=== PATIENT | male | born 1980 | race Asian ===

== ENCOUNTER 2022-03-06 07:16 | Emergency (ER) | payer OTHER ==
[~2022-03-06] VITALS: Ht 170.2 cm; Wt 93.0 kg
[2022-03-06] MEDS ORDERED: AMLO1CAP PO (07:33)
[2022-03-06] MEDS ORDERED: DAPA5TAB PO (07:33)
[2022-03-06] MEDS ORDERED: SITA1TAB2 PO (07:33)
--- NOTE | 2022-03-06 07:38 | NUR ---
MD at bedside for evaluation
[2022-03-06] MEDS ORDERED: IV NORMAL SALINE 1000 ML BAG IV ONE (07:45)
[2022-03-06] MEDS ORDERED: MORPHINE SULFATE 2 MG/1 ML DISP.SYRIN IV ONE (07:45)
[2022-03-06] MEDS ORDERED: ONDANSETRON 4 MG/2 ML VIAL IV ONE ×2 (07:45→09:00)
--- NOTE | 2022-03-06 07:45 | NUR ---
Patient walked into the ER for complaints of chest pain, flank pain, and nausea and vomiting. Patient states it started around 4AM this morning. Pain level is 7/10. Patient states that he had kidney stones in October and his flank pain is similar to what he felt previously. No shortness of breath noted.
[2022-03-06] MEDS ORDERED: ONDANSETRON 4 MG/2 ML VIAL ONE (07:50)
[2022-03-06 07:51] LABS: HEMATOCRIT 44.5 % (36.7-47.1); MEAN CORPUSCULAR HEMOGLOBIN 31.2 uug (23.8-33.4); MEAN CORPUSCULAR VOLUME 92.2 fL (73.0-96.2); PLATELET COUNT (AUTO) 223 K/uL (152-348)
[2022-03-06] MEDS ORDERED: MORPHINE SULFATE 4 MG/1 ML DISP.SYRIN ONE (07:51)
[2022-03-06 08:00] LABS: CARBON DIOXIDE 32 mmol/L (21-32); CHLORIDE 101 mmol/L (98-107); CREATININE 1.2 mg/dL (0.6-1.3); GLUCOSE 162 mg/dL (74-106); POTASSIUM 4.3 mmol/L (3.5-5.1); UREA NITROGEN, BLOOD 15 mg/dL (7-18)
[2022-03-06 08:12] LABS: ALANINE AMINOTRANSFERASE 45 U/L (16-63); ALKALINE PHOSPHATASE 56 U/L (50-136); ASPARTATE AMINOTRANSFERASE 11 U/L (15-37); BILIRUBIN,DIRECT 0.1 mg/dL (0.0-0.2); BILIRUBIN,TOTAL 0.4 mg/dL (0.2-1.0); TOTAL PROTEIN, SERUM 8.2 g/dL (6.4-8.2)
--- NOTE | 2022-03-06 08:12 | NUR ---
Patient taken to CT.
--- NOTE | 2022-03-06 08:25 | NUR ---
Patient back from CT.
--- NOTE | 2022-03-06 08:25 | NUR ---
Patient complains of new onset pressure in the chest and nausea. MD notified. Order received for repeat EKG.
[2022-03-06 08:34] LABS: *BILIRUBIN,URIN NEGATIVE (NEGATIVE); *BLOOD, URINE NEGATIVE (NEGATIVE); *CLARITY,URINE CLEAR (CLEAR); *COLOR,URINE YELLOW (YELLOW); *KETONES,URINE NEGATIVE (NEGATIVE); LEUKOCYTE ESTERASE ,URINE NEGATIVE (NEGATIVE); NITRITE, URINE NEGATIVE (NEGATIVE); PH,URINE 8.5 (5.0-8.0); UGLUCOSE 3+ (NEGATIVE)
--- NOTE | 2022-03-06 08:40 | NUR ---
Patient states that pressure in chest and nausea subsided.
[2022-03-06 09:22] LABS: BACTERIA,URINE NONE SEEN /HPF (NONE SEEN); MUCUS,URINE FEW /LPF (0-FEW); RBC,URINE NONE SEEN /HPF (0-3); SQUAMOUS EPITHELIAL CELL,UR NONE SEEN /HPF (NONE SEEN); WBC,URINE 0-3 /HPF (0-3)
[2022-03-06] MEDS ORDERED: ASPIRIN 325 MG TABLET PO ONE (09:30)
[2022-03-06] MEDS ORDERED: ASPIRIN 325 MG TABLET ONE (09:57)
[2022-03-06 10:47] VITALS: BP 127/80
--- NOTE | 2022-03-06 10:47 | NUR ---
Patient discharged to home in stable condition. Written and verbal after care instructions given. Patient verbalizes understanding of instructions. Stressed follow up or return to ER for worsening s/s.
== END 2022-03-06 10:54 | disposition home or self-care (01) ==
LOC: ER 07:22
DX: R10.9 Unspecified abdominal pain (principal); R07.89 Other chest pain; K80.20 Calculus of gallbladder without cholecystitis without obstruction; K57.30 Diverticulosis of large intestine without perforation or abscess without bleeding; M25.78 Osteophyte, vertebrae; K76.0 Fatty (change of) liver, not elsewhere classified; Z87.442 Personal history of urinary calculi; I10 Essential (primary) hypertension; E11.9 Type 2 diabetes mellitus without complications; Z79.84 Long term (current) use of oral hypoglycemic drugs
CPT/HCPCS: 99285; 74176; 96374; 71045; 96361; 96375; 80076; 80048; 81001; 83690; 85025; 84484 ×2; 36415; 93005 ×2; J2405; J2270; J7040; A4663